=== PATIENT | female | born 1970 | race Caucasian/White ===

== ENCOUNTER 2017-11-27 21:52 | Emergency (ER) | payer OTHER, SELFPAY ==
[2017-11-27 21:53] VITALS: BP 116/72; PULSE 77; RESP 16; TEMP 36.6; O2SAT 99; BMI 24.3
--- NOTE | 2017-11-27 22:19 | CT_ITS ---
STUDY: CT ABDOMEN AND PELVIS WITHOUT CONTRAST REASON FOR EXAM: Female, 47 years old. Back and right lower quadrant pain and loose stools, RADIATION DOSAGE (If Supplied By Facility): CTDIvol = ( 7.54 ) mGy, DLP = ( 391.80 ) mGycm TECHNIQUE: Transaxial images were obtained from the dome of the diaphragm to the symphysis pubis without oral contrast, and without intravenous contrast. Sagittal and coronal images were reconstructed. Individualized dose optimization techniques were used for this CT. COMPARISON: None. FINDINGS: The visualized lung bases are unremarkable. The visualized portions of the heart are within normal limits. There are bilateral breast implants. Normal liver. Normal gallbladder and extrahepatic biliary system. There is a extra spleen or splenule demonstrated nearly equal size. Each measuring approximately 5.5 cm. Normal pancreas. Normal bilateral adrenal glands. Normal right kidney. Normal left kidney. Normal visualized stomach. There are mildly distended loops of small bowel present. There is a decompressed appearance of the colon. Within the transverse colon there is focal absence of stool in possible wall thickening. This is versus peristalsis. The appendix is visualized and appears normal. Normal abdominal aorta. Normal inferior vena cava. Normal retroperitoneum. Normal urinary bladder. Normal visualized uterus. There is a small umbilical hernia containing fat. There are diffuse degenerative changes of the visualized lumbar spine. There is multilevel degenerative change. At the level of L4-L5 there is a broad disc bulge with mild to moderate neural foramina narrowing mild central stenosis. At L5-S1 there is disc space narrowing and endplate sclerosis. There is degenerative change of the SI joints. CT/Abdomen/Pelvis without Cont IMPRESSION: Degenerative change of the thoracolumbar spine. No visualized obstructing renal ureteral bladder calculi. There may be a segment of mild colitis in the transverse colon versus peristalsis. Electronically Signed: Melanie Khanna MD at 23:43 EDT Tel , Service support ,
[2017-11-27 22:33] LABS: Bacteria 0 SEEN /hpf (None Seen); Mucous, Urine 0 SEEN /hpf (<or=2+); Red Blood Cells-Urine 0 SEEN /hpf (0-5); Squamous Epithelial Cells - UA 0 SEEN /hpf (5-10)
[2017-11-27 22:40] LABS: Absolute Lymphocyte Count 1.68 X10^3/ul (0.83-4.51); Absolute Neutrophil Count 2.7 X10^3/uL (2.0-7.7); Basophil# 0.02 X10^3/uL; Basophil% 0.4 % (0-1); Eosinophil# 0.19 X10^3/uL; Eosinophils% 3.9 % (0-5); Hematocrit 41.4 % (37-47); Hemoglobin 13.6 g/dl (12.0-15.0); Lymphocyte # 1.68 X10^3/ul (4.0); Lymphocyte % 34.3 % (19-41); Mean Corp Hgb Conc 32.9 g/gl (32-36); Mean Corpuscular Hgb 30.5 pg (27.0-32.0); Mean Corpuscular Volume 92.8 fL (81-99); Mean Platelet Vol. 8.7 fl (6.2-12.0); Monocyte# 0.28 X10^3/uL; Monocyte% 5.7 % (0-10); Neutrophil # 2.73 X10^3/uL (2.7-7.7); Neutrophil % 55.7 % (47-70); POSITIVE COUNT NO; POSITIVE DIFFERENTIAL NO; POSITIVE MORPHOLOGY NO; Platelet Count 310 K/mm3 (150-450); RBC Distribution Width CV 13.2 % (11.6-14.6); RBC Distribution Width SD 44.9 fl (35.1-43.9); Red Blood Count 4.46 M/mm3 (4.2-5.4); White Blood Count 4.9 K/mm3 (4.4-11.0)
[2017-11-27 23:05] LABS: ALB/GLOB Ratio 1.2 RATIO (0.9-2.4); AST(SGOT) 28 U/L (15-37); Alanine Aminotransfer ALT/SGPT 47 U/L (13-56); Albumin, Serum 3.8 g/dL (3.2-5.0); Alkaline Phosphatase 73 U/L (45-117); Anion Gap 5 (5-15); BUN 8 mg/dL (7-18); BUN/Creat Ratio 8.1 RATIO (10-20); Chloride 110 mmol/L (98-107); Creatinine, Serum 0.99 mg/dL (0.55-1.02); EST Glomerular Filtration Rate 63 mL/min (>60); Est Glom Filt Rate - Afr Amer 77 mL/min (>60); Estimated Creatinine Clearance 69.34 ml/min; Globulin 3.2 g/dL (2.2-4.2); Glucose 97 mg/dL (74-106); Lipase 274 U/L (73-393); Potassium 3.4 mmol/L (3.5-5.1); Sodium Level 142 mmol/L (136-145)
[2017-11-27 23:13] LABS: Color, Urine Yellow (Yellow); Glucose, Dipstick Normal (Normal); Ketone-Dipstick Negative (Negative); Protein-Dipstick Negative (Negative); Urine Bilirubin Dipstick Negative (Negative); Urine Clarity Clear (Clear)
[2017-11-27 23:14] LABS: Leukocyte Esterase-Dipstick 25 /ul (Negative); Nitrite-Dipstick Negative (Negative); Occult Blood-Urine Negative /ul (Negative); Urine Urobilinogen Normal (Normal)
[2017-11-27 23:15] LABS: White Blood Cells 0-5 SEEN /hpf (0-5)
[2017-11-28 00:29] VITALS: BP 117/72; PULSE 68; RESP 15; O2SAT 98
--- NOTE | 2017-11-28 00:41 | ED.VISSUMM ---
- ER Visit Summary Date of Service: 11/28/17 Chief Complaint: Abdominal pain History of Present Illness: The patient is a 47 F presenting for evaluation secondary to abdominal pain. Patient reports that at approximately 130 today she had a sudden onset of diarrhea. She reports that she had 4 episodes of nonbloody non-mucousy diarrhea. She states it has been associated with nausea and a gradual onset of right lower quadrant abdominal pain. Patient states that the abdominal pain seems to be somewhat migratory now moving to the left side of her abdomen and radiating through to her back. Has no leaving factors is little bit worse with palpation and has been associated with subjective chills. Patient denies any recent exposures to antibiotic or travel. Review of systems otherwise negative. Physical Examination: Vital signs are within normal limits, patient is afebrile. General: Patient is well-nourished well-developed and in no acute distress. Head: Normocephalic, atraumatic Eyes: Pupils equal round and reactive bilaterally, extra occular motion intact bialterally ENT: Moist mucous membranes Neck: Supple, no lymphadenopathy, no JVD, no meningismus CVS: Heart regular rate and rhythm, no murmurs, rubs or gallops, radial pulses 2+ bilaterally Resp: Respirations nondistressed, lung sounds clear bilaterally Abdomen: Soft, tender in the epigastrium and left lower quadrant without any guarding or rebound, nondistended, no palpable masses, normal bowel sounds Back: Nontender Extremities: Nontender, atraumatic, active full range of motion, no peripheral edema Skin: warm, no rashes, no petechia Neuro: Alert and oriented x 4, CN 2-12 intact, no lateralizing neurological defecits Psyc: Normal affect Test Results: CT abdomen and pelvis shows colitis of the transverse colon, CBC chemistry liver lipase and urinalysis unremarkable Emergency Department Course and Treatment: Patient presented for evaluation secondary to abdominal pain. Workup as noted above showed evidence of colitis. Repeat evaluation showed patient to continue to have a nonsurgical abdomen. Given the fact that she does have some localized colitis I will treat this with antibiotics. She has does not have any blood, has never really had any prior similar episodes, I am not really concerned for inflammatory bowel disease at this point. Patient was recommended follow-up with primary care. Disposition: Discharge Impression: 1. Colitis This note was generated with [employer] dictation software. It may contain incorrect words, spelling, and punctuation that were not noted in review of the chart prior to signing ED Disposition - Plan for ED Patient: Disposition: Home or Assisted Living Chief Complaint: Abd Pain Diagnosis: Colitis Instructions: ED Gastroenteritis Bacterial Prescriptions: Hydrocodone Bitart/Apap 5-325 [[place] 5MG-325MG] 1 tab PO Q4H PRN PRN 2 Days #10 tab PRN Reason: Pain Amox/Clavulanate Tablet [Augmentin Tablet] 875 mg PO Q12H #20 tab Referrals: Jayden Ward MD [Primary Care Provider] - 3-5 Days
--- NOTE | 2017-11-28 00:45 | ED.DCSUM_ITS ---
- ER Visit Summary Date of Service: 11/28/17 Chief Complaint: Abdominal pain History of Present Illness: The patient is a 47 F presenting for evaluation secondary to abdominal pain. Patient reports that at approximately 130 today she had a sudden onset of diarrhea. She reports that she had 4 episodes of nonbloody non-mucousy diarrhea. She states it has been associated with nausea and a gradual onset of right lower quadrant abdominal pain. Patient states that the abdominal pain seems to be somewhat migratory now moving to the left side of her abdomen and radiating through to her back. Has no leaving factors is little bit worse with palpation and has been associated with subjective chills. Patient denies any recent exposures to antibiotic or travel. Review of systems otherwise negative. Physical Examination: Vital signs are within normal limits, patient is afebrile. General: Patient is well-nourished well-developed and in no acute distress. Head: Normocephalic, atraumatic Eyes: Pupils equal round and reactive bilaterally, extra occular motion intact bialterally ENT: Moist mucous membranes Neck: Supple, no lymphadenopathy, no JVD, no meningismus CVS: Heart regular rate and rhythm, no murmurs, rubs or gallops, radial pulses 2 + bilaterally Resp: Respirations nondistressed, lung sounds clear bilaterally Abdomen: Soft, tender in the epigastrium and left lower quadrant without any guarding or rebound, nondistended, no palpable masses, normal bowel sounds Back: Nontender Extremities: Nontender, atraumatic, active full range of motion, no peripheral edema Skin: warm, no rashes, no petechia Neuro: Alert and oriented x 4, CN 2-12 intact, no lateralizing neurological defecits Psyc: Normal affect Test Results: CT abdomen and pelvis shows colitis of the transverse colon, CBC chemistry liver lipase and urinalysis unremarkable Emergency Department Course and Treatment: Patient presented for evaluation secondary to abdominal pain. Workup as noted above showed evidence of colitis. Repeat evaluation showed patient to continue to have a nonsurgical abdomen. Given the fact that she does have some localized colitis I will treat this with antibiotics. She has does not have any blood, has never really had any prior similar episodes, I am not really concerned for inflammatory bowel disease at this point. Patient was recommended follow-up with primary care. Disposition: Discharge Impression: 1. Colitis This note was generated with [employer] dictation software. It may contain incorrect words, spelling, and punctuation that were not noted in review of the chart prior to signing ED Disposition - Plan for ED Patient: Disposition: Home or Assisted Living Chief Complaint: Abd Pain Diagnosis: Colitis Instructions: ED Gastroenteritis Bacterial Prescriptions: Hydrocodone Bitart/Apap 5-325 [[place] 5MG-325MG] 1 tab PO Q4H PRN PRN 2 Days #10 tab PRN Reason: Pain Amox/Clavulanate Tablet [Augmentin Tablet] 875 mg PO Q12H #20 tab Referrals: Jayden Ward MD [Primary Care Provider] - 3-5 Days
[2017-11-28] MEDS: HYDROcodone Bitartrate/Apap 5/325 Tablet PO (00:57)
[2017-11-28] MEDS: Amox/Clavulanate 875 MG Tablet PO (00:57)
[2017-11-28 00:58] VITALS: RESP 18
== END 2017-11-28 00:58 | disposition home or self-care (01) ==
PROVIDERS: Emergency Provider Emergency Medicine; Family Provider Family Medicine; PCP Family Medicine
DX: K52.9 Noninfective gastroenteritis and colitis, unspecified (principal); E78.00 Pure hypercholesterolemia, unspecified; F31.9 Bipolar disorder, unspecified; E03.9 Hypothyroidism, unspecified; G43.909 Migraine, unspecified, not intractable, without status migrainosus; Z79.899 Other long term (current) drug therapy
CPT/HCPCS: 74176; 80053; 80178; 81001; 83690; 85025; 99283; J7030; A4216

== ENCOUNTER → 2018-06-26 08:43 | Outpatient (CLI) | payer OTHER, SELFPAY ==
[2018-06-26 08:31] VITALS: BMI 24.1
--- NOTE | 2018-06-26 08:47 | RAD_ITS ---
STUDY: X-RAY - LUMBAR SPINE REASON FOR EXAM: Female, 48 years old. Fall TECHNIQUE: view(s) of the lumbar spine were obtained. COMPARISON: None FINDINGS: Normal lumbar lordosis. There is no substantial scoliosis. There is a normal alignment of the vertebrae. Normal vertebral bodies and endplates. Disc height loss is noted at L5-S1 with mild degenerative endplate marginal osteophytes otherwise disc height is maintained. The soft tissue structures are unremarkable. RAD/Thoracolumbar 2 Views IMPRESSION: No acute abnormality. Degenerative disc height loss L5-S1 Electronically Signed: Anyi Mitchell MD at 12:32 EST , Service support ,
--- NOTE | 2018-06-26 08:47 | RAD_ITS ---
STUDY: X-RAY - LUMBAR SPINE REASON FOR EXAM: Female, 48 years old. Fall TECHNIQUE: view(s) of the lumbar spine were obtained. COMPARISON: None FINDINGS: Normal lumbar lordosis. There is no substantial scoliosis. There is a normal alignment of the vertebrae. Normal vertebral bodies and endplates. Disc height loss is noted at L5-S1 with mild degenerative endplate marginal osteophytes otherwise disc height is maintained. The soft tissue structures are unremarkable. RAD/Cerv Spine 2 or 3 Views IMPRESSION: No acute abnormality. Degenerative disc height loss L5-S1 Electronically Signed: Anyi Mitchell MD at 12:32 EST , Service support ,
--- NOTE | 2018-06-26 08:47 | RAD_ITS ---
STUDY: X-RAY - LUMBAR SPINE REASON FOR EXAM: Female, 48 years old. Fall TECHNIQUE: view(s) of the lumbar spine were obtained. COMPARISON: None FINDINGS: Normal lumbar lordosis. There is no substantial scoliosis. There is a normal alignment of the vertebrae. Normal vertebral bodies and endplates. Disc height loss is noted at L5-S1 with mild degenerative endplate marginal osteophytes otherwise disc height is maintained. The soft tissue structures are unremarkable. RAD/Shoulder min 2 Views IMPRESSION: No acute abnormality. Degenerative disc height loss L5-S1 Electronically Signed: Anyi Mitchell MD at 12:32 EST , Service support ,
--- NOTE | 2018-06-26 12:12 | RAD_ITS ---
STUDY: X-RAY - LUMBAR SPINE REASON FOR EXAM: Female, 48 years old. Fall TECHNIQUE: view(s) of the lumbar spine were obtained. COMPARISON: None FINDINGS: Normal lumbar lordosis. There is no substantial scoliosis. There is a normal alignment of the vertebrae. Normal vertebral bodies and endplates. Disc height loss is noted at L5-S1 with mild degenerative endplate marginal osteophytes otherwise disc height is maintained. The soft tissue structures are unremarkable. RAD/Lumbar Spine 2 or 3 Views IMPRESSION: No acute abnormality. Degenerative disc height loss L5-S1 Electronically Signed: Ayni Mitchell MD at 12:32 EST , Service support ,
--- NOTE | 2018-06-26 12:12 | RAD_ITS ---
STUDY: X-RAY - THORACIC SPINE REASON FOR EXAM: Female, 48 years old. Fall TECHNIQUE: 2 view(s) of the thoracic spine were obtained. COMPARISON: None. FINDINGS: Normal kyphosis of the thoracic spine. There is no substantial scoliosis. There is mild superior endplate compression and irregularity of T4 but without evidence of cortical buckling in the appearance suggests chronic change. No evidence of acute fracture. Mild multilevel marginal osteophytes are present. Normal disc space heights. The soft tissue structures are unremarkable. RAD/Thoracic Spine 2 Views IMPRESSION: No acute fracture. There does appear mild superior endplate compression of T4 with irregularity but this appearance is more likely chronic than acute. Mild degenerative endplate changes. Electronically Signed: Anyi Mitchell MD at 12:26 EST , Service support ,
--- OUTSIDE RECORDS SUMMARY | 2018-08-31 | XMS RPT_ITS ---
:1970 Author Organization OHIP Support Name Relationship Address Phone MARIXA NELSON Unavailable [address] + [place] [address] BOLES Unavailable [address] + [place] [address] ADDIS NEUMANN Unavailable [address] + [place] [address] LESLIE MARIXA Unavailable [address] + [place] [address] BOLES Unavailable [address] + [place] [address] ADDIS NEUMANN Unavailable [address] + [place] [address] MARIXA NELSON Unavailable [address] + [place] [address] BOLES Unavailable [address] + [place] [address] ADDIS NEUMANN Unavailable [address] + [place] [address] MARIXA NELSON Unavailable [address] + [place] [address] BOLES Unavailable [address] + [place] [address] ADDIS NEUMANN Unavailable [address] + [place] [address] MARIXA NELSON Unavailable [address] + [place] [address] BOLES Unavailable [address] + [place] [address] ADDIS NEUMANN Unavailable [address] + [place] [address] MARIXA NELSON Unavailable [address] + [place] [address] BOLES Unavailable [address] + [place] [address] ADDIS NEUMANN Unavailable [address] + [place] [address] MARIXA NELSON Un[address] + [place] [address] BOLES Unavailable [address] + [place] [address] ADDIS NEUMANN Unavailable [address] + [place] [address] BOLES Unavailable [address] + [place] [address] ADDIS NEUMANN Unavailable [address] + [place] [address] Care Team Providers Name Role Phone Prashanth Shook Attending Unavailable Ed, Jayden Referring Unavailable Prashanth Shook Attending Unavailable Prashanth Shook Referring Unavailable Ed, Jayden Primary Care Unavailable Prashanth Shook Attending Unavailable Ed, Jayden Referring Unavailable Ed, Jayden Primary Care Unavailable Ed, Jayden Primary Care Unavailable Willi Taylor Attending Unavailable Jose Bhagat Attending Unavailable Ed, Jayden Referring Unavailable Ed, Jayden Primary Care Unavailable Prashanth Shook Attending Unavailable Ed, Jayden Referring Unavailable Jose Bhagat Attending Unavailable Ed, Jayden Referring Unavailable Ed, Jayden Primary Care Unavailable Prashanth Shook Attending Unavailable Ed, Jayden Referring Unavailable De, Jayden Primary Care Unavailable PROBLEMS PROBLEMS DATE TYPE CONDITION / CODE ATTENDING STATUS SOURCE 06/26/2018 Unknown M54.2 - Bouchra Prashanth Active [facility]ervical[facility] / Community M54.2(ICD-10) Hospital Repository 06/26/2018 Unknown M54.9 - Bouchra Prashanth Active [facility] Dorsalgia, Community unspecified / Hospital M54.9(ICD-10) Repository 06/26/2018 Unknown M25.511 - Pain in Bouchra Prashanth Active [facility] right shoulder / Community M25.511(ICD-10) Hospital Repository 02/22/2018 Unknown J06.9 - Acute Jose Bhagat Active [facility] upper respiratory Community infection, Hospital unspecified / Repository J06.9(ICD-10) 01/25/2018 Unknown R10.31 - Right Willi Taylor Active [facility] lower quadrant [facility] pain / Hospital R10.31(ICD-10) Repository PROCEDURES PROCEDURES No Procedure Records FoundRESULTS RESULTS URGENT CARE VISIT Observed: 07/03/2018 Status: F Source: [place] REPORT 4:56 PM [facility] REPOSITORY [facility] [address] [place] [address] [address] [place] [address] OFFICE VISIT Date of Service: 07/03/18 MR#: [id number] Acct: [id number] Name: NIGHAT NEUMANN Rep #: [id number] : 1970 Provider: Prashanth SANCHES Age/Sex: 48/F Location: [facility] Status: Signed Intake Vital Signs07/03/18 Blood Pressure 114/68 07/03/18 Blood Pressure Location Lt brachial 07/03/18 Blood Pressure Position Sitting Intake Visit Reasons: RT SIDED PAIN/FELL ON ICE/ WORK COMP Chief Complaint: s/p fall recheck Allergies No Known Allergies Allergy (Verified 06/26/18 08:31) Erythromycin Allergy (Mild, Uncoded 06/26/18 08:31) Nausea/Vom/Diarrhea Medications bupropion HCl XL 150 mg 24 hr tablet, extended release 2 tab PO DAILY 30 Days #30 10/17/17 [History Confirmed 02/25/18] cetirizine 10 mg capsule 10 mg PO QDAY 10/17/17 [History Confirmed 02/25/18] levothyroxine 75 mcg tablet 1 tab PO DAILY 90 Days #90 10/17/17 [History Confirmed 02/25/18] lithium carbonate ER 300 mg tablet,extended release 1 tab PO DAILY 30 Days #90 10/17/17 [History Confirmed 02/25/18] rosuvastatin 5 mg tablet 1 tab PO DAILY 30 Days #30 10/17/17 [History Confirmed 02/25/18] verapamil ER (SR) 180 mg tablet,extended release PO 30 Days #30 10/17/17 [History Confirmed 02/25/18] Mountainaire Carbonate [Lithobid] 2 tab PO QHS 11/27/17 [History Confirmed 02/25/18] Valacyclovir HCl [Valtrex] 1,000 mg PO TID 11/27/17 [History Confirmed 02/25/18] Verapamil [Calan Sr] 1 tab PO DAILY 11/27/17 [History Confirmed 02/25/18] PFSH Medical History Migraines (Acute) SOB (shortness of breath) (Acute) Seasonal allergies (Acute) Seasonal depression (Acute) Thyroid disease (Acute) Family History Other CVA (cerebral vascular accident) Depression Environmental allergies Heart disease Hypertension Social History Smoking Status: Never smoker alcohol intake: current alcohol intake frequency: a few times a month HPI HPI Chief Complaint: s/p fall recheck Details: NIGHAT NEUMANN, is a 48 F who presents to the office today for follow-up status post work-related incident occurring 1 week ago. Patient notes since her last evaluation here her symptoms have improved remarkably noting really trace aching posterior neck discomfort without caudal or radicular complaints. She has been working without restrictions without difficulty. She notes no other associated symptoms and no other alleviating or aggravating factors. ROS Const Constitutional: No other (ROS negative x10 other than as noted above) Exam Const General: cooperative, healthy appearing, no acute distress Nutritional Appearance: average body habitus Orientation: alert, awake, oriented x3 Skin General: no rashes or lesions noted (Right hand abrasion well- healed without sequelae) Neuro General: alert, awake, oriented x3, gait normal Cognition: normal cognition Speech: speech normal Gait: normal gait Motor: muscle tone normal throughout Sensory Exam: no sensory deficits noted Extrem General: normal to inspection (See other below) Other: Cervical: Unguarded full active range of motion with no C-spine or paraspinal tenderness to palpation in 5/5 myotomes dermatomes bilateral upper extremities. Thoracic lumbar: No tenderness palpation of the thoracic lumbar spine or paraspinal musculature with unguarded full active range of motion of the waist and 5/5 myotomes dermatomes bilateral lower extremities. Right shoulder: Unguarded full active range of motion to the same. Bilateral wrists: unguarded full active range of motion to the same with 5/5 assistant account manager strength appreciated bilaterally. Right hand: Abrasion well-healed without sequelae. Psych Appearance: grossly normal Mental Status: mental status grossly normal Mood: congruent mood Affect: normal affect Speech and Movement: speech and movement normal Attitude: cooperative Thought Process: normal Thought Content: normal Judgment: judgment good Assessment AND Plan Problems 1. Cervical strain S16.1XXA 2. Strain of thoracic region S29.019A 3. Lumbar strain S39.012A 4. Right shoulder strain S46.911A 5. Strain of wrist, bilateral S66.911A; S66.912A 6. Abrasion of right hand S60.511A Plan Released to return to work without restrictions at this time; MMI 07/03/18. Patient states acknowledging understanding all the above. This note was generated with [employer] software. It may contain incorrect words, spelling, and punctuation that were not noted in checking the note before signing. Coding Level of Care Code Off vis,est,level 3 Diagnoses Cervical strain S16.1XXA Strain of thoracic region S29.019A Lumbar strain S39.012A Right shoulder strain S46.911A Strain of wrist, bilateral S66.911A; S66.912A Abrasion of right hand S60.511A 07/03/18 1656 <Electronically signed by Prashanth SANCHES> Date Prashanth SANCHES Cosigner Signature: Date (if applicable) CC: URGENT CARE VISIT Observed: 06/26/2018 Status: F Source: [place] REPORT 1:55 PM [facility] [place] [place] REPOSITORY 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 Accompanied by: self Is patient in pain?: Yes Allergies No Known Allergies Allergy (Verified 06/26/18 08:31) Erythromycin Allergy (Mild, Uncoded 06/26/18 08:31) Nausea/Vom/Diarrhea Medications bupropion HCl XL 150 mg 24 hr tablet, extended release 2 tab PO DAILY 30 Days #30 10/17/17 [History Confirmed 02/25/18] cetirizine 10 mg capsule 10 mg PO QDAY 10/17/17 [History Confirmed 02/25/18] levothyroxine 75 mcg tablet 1 tab PO DAILY 90 Days #90 10/17/17 [History Confirmed 02/25/18] lithium carbonate ER 300 mg tablet,extended release 1 tab PO DAILY 30 Days #90 10/17/17 [History Confirmed 02/25/18] rosuvastatin 5 mg tablet 1 tab PO DAILY 30 Days #30 10/17/17 [History Confirmed 02/25/18] verapamil ER (SR) 180 mg tablet,extended release PO 30 Days #30 10/17/17 [History Confirmed 02/25/18] Mountainaire Carbonate [Lithobid] 2 tab PO QHS 11/27/17 [History Confirmed 02/25/18] Valacyclovir HCl [Valtrex] 1,000 mg PO TID 11/27/17 [History Confirmed 02/25/18] Verapamil [Calan Sr] 1 tab PO DAILY 11/27/17 [History Confirmed 02/25/18] PFSH Medical History Migraines (Acute) SOB (shortness of breath) (Acute) Seasonal allergies (Acute) Seasonal depression (Acute) Thyroid disease (Acute) Family History Other CVA (cerebral vascular accident) Depression Environmental allergies Heart disease Hypertension Social History Smoking Status: Never smoker alcohol intake: current alcohol intake frequency: a few times a month HPI HPI Chief Complaint: Fell Details: NIGHAT NEUMANN, is a 48 F who presents to the office today for initial evaluation status post fall while in the parking lot at work earlier today. Patient noted falling forward landing on outstretched hands twisting her back and causing neck pain, right shoulder pain, mid low right great than left back pain, and bilateral hand pain. Patient also noted also suffering abrasion to the left palmar hand in the process; last tetanus immunization less than 10 years ago she so states. She is right-hand dominant. Past medical history significant for previous history of right humerus fracture x3 as a teenager. She notes no caudal or radicular complaints upon questioning. She notes no loss of sensation strength or function of bilateral upper extremity or bilateral lower extremity. She notes no other associated symptoms no other alleviating or aggravating factors. ROS Const Constitutional: No other (ROS negative x10 other than as noted above) Exam Const General: cooperative, healthy appearing, no acute distress, uncomfortable Nutritional Appearance: average body habitus Orientation: alert, awake, oriented x3 [facility] Head: normal to inspection Ears: hearing grossly normal bilaterally, external ears normal, TM's normal bilaterally, EAC's normal Nose: external nose normal, nares normal, septum normal, no nasal discharge Face and sinus: normal facial exam, face symmetric Mouth: tongue normal, lip normal, oral mucosae normal Teeth and gingiva: dentition normal, gingiva normal Throat: uvula midline, tonsils normal, posterior oropharynx normal Eyes General: appearance normal, both eyes and all related structures Neck Neck: normal visual inspection, full ROM Chest Chest palpation AND inspection: normal inspection of the chest Resp Effort AND Inspection: normal respiratory effort, able to speak in complete sentences, symmetric chest movement Auscultation: Bilateral: Clear to Auscultation Cardio Palpation: normal PMI Rate: regular rate Rhythm: regular rhythm Heart Sounds: S1 normal, S2 normal, no gallops, no murmurs, no rubs Pulses: radial pulses present GI Inspection: normal to inspection Palpation: soft Musc Musculoskeletal: Yes joint tenderness (Right shoulder and bilateral wrists only minimally w/ FAROM to all); no joint redness, joint warmth or decreased ROM Cervical Spine: cervical ROM normal; no normal cervical lordosis (Loss of lordosis by x-ray; c- spine films negative otherwise per my review) Thoracic/Lumbar Spine: thoracic and lumbar spine normal to inspection (Except loss of L5-S1 spacing her radiographs per my review), thoraco-lumbar ROM normal, no thoraco-lumbar spasm, no lumbar spinal tenderness, no thoracic spinal tenderness, paraspinal tenderness on the right greater than left (Lower thoracic/upper mid lumbar), straight leg raise negative bilaterally Skin General: no rashes or lesions noted Neuro General: alert, awake, oriented x3, gait normal Cognition: normal cognition Speech: speech normal Gait: normal gait Motor: muscle tone normal throughout Sensory Exam: no sensory deficits noted Extrem General: normal to inspection, full ROM, normal capillary refill, no joint enlargement, normal exam except as noted (R shoulder xray = NAP per my review, pending radiology interpretation) Psych Appearance: grossly normal Mental Status: mental status grossly normal Mood: congruent mood Affect: normal affect Speech and Movement: speech and movement normal Attitude: cooperative Thought Process: normal Thought Content: normal Judgment: judgment good Assessment AND Plan Problems 1. Cervical strain S16.1XXA 2. Strain of thoracic region S29.019A 3. Lumbar strain S39.012A 4. Right shoulder strain S46.911A 5. Strain of wrist, bilateral S66.911A; S66.912A 6. Abrasion of right hand S60.511A Plan C-spine, T-spine, LS-spine, right shoulder radiographs reveal no acute pathology per my review, pending radiologist interpretation at the time of this dictation; patient stated acknowledging understanding this review. Return to work without restrictions at this time. Rest, ice, Advil/Tylenol as needed for symptomatic relief. Twice daily wound care as instructed today. Follow-up with the now clinic in 1 week for reevaluation, sooner should symptoms worsen or any other concerns develop. Patient states acknowledging understanding all the above. This note was generated with [employer] dictation software. It may contain incorrect words, spelling, and punctuation that were not noted in checking the note before signing. Orders Orders: Coding Level of Care Code Off vis,est,level 4 Diagnoses Cervical strain S16.1XXA Strain of thoracic region S29.019A Lumbar strain S39.012A Right shoulder strain S46.911A Strain of wrist, bilateral S66.911A; S66.912A Abrasion of right hand S60.511A 06/26/18 1355 <Electronically signed by Prashanth SANCHES> Date Prashanth SANCHES Cosigner Signature: Date (if applicable) CC: THORACIC SPINE 2 Observed: 06/26/2018 Status: F Source: [place] 12:12 PM [facility] [place] [place] REPOSITORY [facility] Imaging Services [address] [place] [address] Thoracic Spine 2 Views MR#: [id number] Acct: [id number] Name: NIGHAT NEUMANN Rep #: [id number] : 1970 F 48 From: Anyi Mitchell MD PCP: Jayden Ward MD Status: REG CLI Study: Thoracic Spine 2 Views Date of Exam: 06/26/18 Exam# [id number] Ordering Dr: Prashanth Shook STUDY: X-RAY - THORACIC SPINE REASON FOR EXAM: Female, 48 years old. Fall TECHNIQUE: 2 view(s) of the thoracic spine were obtained. COMPARISON: None. FINDINGS: Normal kyphosis of the thoracic spine. There is no substantial scoliosis. There is mild superior endplate compression and irregularity of T4 but without evidence of cortical buckling in the appearance suggests chronic change. No evidence of acute fracture. Mild multilevel marginal osteophytes are present. Normal disc space heights. The soft tissue structures are unremarkable. RAD/Thoracic Spine 2 Views IMPRESSION: No acute fracture. There does appear mild superior endplate compression of T4 with irregularity but this appearance is more likely chronic than acute. Mild degenerative endplate changes. Electronically Signed: Anyi Mitchell MD at 12:26 EST , Service support , CC: Jayden Ward MD; Prashanth SANCHES 2Nd Pressman: Signed LUMBAR SPINE 2 OR 3 Observed: 06/26/2018 Status: F Source: [place] VIEWS 12:12 PM [facility] [place] [place] REPOSITORY [facility] Imaging Services [address] [place] [address] Lumbar Spine 2 or 3 Views MR#: [id number] Acct: [id number] Name: NIGHAT NEUMANN Rep #: [id number] : 1970 F 48 From: Anyi Mitchell MD PCP: Jayden Ward MD Status: REG CLI Study: Lumbar Spine 2 or 3 Views Date of Exam: 06/26/18 Exam# [id number] Ordering Dr: Prashanth Shook STUDY: X-RAY - LUMBAR SPINE REASON FOR EXAM: Female, 48 years old. Fall TECHNIQUE: view(s) of the lumbar spine were obtained. COMPARISON: None FINDINGS: Normal lumbar lordosis. There is no substantial scoliosis. There is a normal alignment of the vertebrae. Normal vertebral bodies and endplates. Disc height loss is noted at L5-S1 with mild degenerative endplate marginal osteophytes otherwise disc height is maintained. The soft tissue structures are unremarkable. RAD/Lumbar Spine 2 or 3 Views IMPRESSION: No acute abnormality. Degenerative disc height loss L5-S1 Electronically Signed: Anyi Mitchell MD at 12:32 EST , Service support , CC: Jayden Ward MD; Prashanth SANCHES 2Nd Pressman: Signed SHOULDER MIN 2 VIEWS Observed: 06/26/2018 Status: F Source: [place] 8:48 AM [facility] Imaging Services [address] [place] [address] Shoulder min 2 Views MR#: [id number] Acct: [id number] Name: NIGHAT NEUMANN Rep #: [id number] : 1970 F 48 From: Anyi Mitchell MD PCP: Jayden Ward MD Status: REG CLI Study: Shoulder min 2 Views Date of Exam: 06/26/18 Exam# [id number] Ordering Dr: Prashanth Shook STUDY: X-RAY - LUMBAR SPINE REASON FOR EXAM: Female, 48 years old. Fall TECHNIQUE: view(s) of the lumbar spine were obtained. COMPARISON: None FINDINGS: Normal lumbar lordosis. There is no substantial scoliosis. There is a normal alignment of the vertebrae. Normal vertebral bodies and endplates. Disc height loss is noted at L5-S1 with mild degenerative endplate marginal osteophytes otherwise disc height is maintained. The soft tissue structures are unremarkable. RAD/Shoulder min 2 Views IMPRESSION: No acute abnormality. Degenerative disc height loss L5-S1 Electronically Signed: Anyi Mitchell MD at 12:32 EST , Service support , CC: Jayden Ward MD; Prashanth SANCHES 2Nd Pressman: Signed THORACOLUMBAR 2 VIEWS Observed: 06/26/2018 Status: F Source: [place] 8:48 AM [facility] [place] [place] REPOSITORY [facility] Imaging Services [address] [place] [address] Thoracolumbar 2 Views MR#: [id number] Acct: [id number] Name: NIGHAT NEUMANN Marcelina Rep #: [id number] : 1970 F 48 From: Anyi Mitchell MD PCP: Jayden Ward MD Status: REG CLI Study: Thoracolumbar 2 Views Date of Exam: 06/26/18 Exam# [id number] Ordering Dr: Prashanth Shook STUDY: X-RAY - LUMBAR SPINE REASON FOR EXAM: Female, 48 years old. Fall TECHNIQUE: view(s) of the lumbar spine were obtained. COMPARISON: None FINDINGS: Normal lumbar lordosis. There is no substantial scoliosis. There is a normal alignment of the vertebrae. Normal vertebral bodies and endplates. Disc height loss is noted at L5-S1 with mild degenerative endplate marginal osteophytes otherwise disc height is maintained. The soft tissue structures are unremarkable. RAD/Thoracolumbar 2 Views IMPRESSION: No acute abnormality. Degenerative disc height loss L5-S1 Electronically Signed: Anyi Mitchell MD at 12:32 EST , Service support , CC: Jayden Ward MD; Prashanth SANCHES 2Nd Pressman: Signed CERV SPINE 2 OR 3 Observed: 06/26/2018 Status: F Source: [place] VIEWS 8:48 AM [facility] [place] [place] REPOSITORY [facility] Imaging Services [address] [place] [address] Cerv Spine 2 or 3 Views MR#: [id number] Acct: [id number] Name: NIGHAT NEUMANN Rep #: [id number] : 1970 F 48 From: Anyi Mitchell MD PCP: Jayden Ward MD Status: REG CLI Study: Cerv Spine 2 or 3 Views Date of Exam: 06/26/18 Exam# [id number] Ordering Dr: Prashanth Shook STUDY: X-RAY - LUMBAR SPINE REASON FOR EXAM: Female, 48 years old. Fall TECHNIQUE: view(s) of the lumbar spine were obtained. COMPARISON: None FINDINGS: Normal lumbar lordosis. There is no substantial scoliosis. There is a normal alignment of the vertebrae. Normal vertebral bodies and endplates. Disc height loss is noted at L5-S1 with mild degenerative endplate marginal osteophytes otherwise disc height is maintained. The soft tissue structures are unremarkable. RAD/Cerv Spine 2 or 3 Views IMPRESSION: No acute abnormality. Degenerative disc height loss L5-S1 Electronically Signed: Anyi Mitchell MD at 12:32 EST , Service support , CC: Jayden Ward MD; Prashanth SANCHES 2Nd Pressman: Signed URGENT CARE VISIT Observed: 02/25/2018 Status: F Source: [place] REPORT 8:44 AM [facility] [place] [place] REPOSITORY [facility] [address] [place] [address] [address] [place] [address] OFFICE VISIT Date of Service: 02/25/18 MR#: [id number] Acct: [id number] Name: NIGHAT NEUMANN Rep #: [id number] : 1970 Provider: Prashanth SANCHES Age/Sex: 47/F Location: [facility] Status: Signed Intake Vital Signs02/25/18 Height 5 ft 8 in Intake Visit Reasons: COUGH, DIZZY, NAUSEA Chief Complaint: Sinus pressure, postnasal drip Allergies No Known Allergies Allergy (Verified 02/25/18 06:54) Erythromycin Allergy (Mild, Uncoded 02/25/18 06:56) Nausea/Vom/Diarrhea Medications bupropion HCl XL 150 mg 24 hr tablet, extended release 2 tab PO DAILY 30 Days #30 10/17/17 [History Confirmed 02/25/18] cetirizine 10 mg capsule 10 mg PO QDAY 10/17/17 [History Confirmed 02/25/18] levothyroxine 75 mcg tablet 1 tab PO DAILY 90 Days #90 10/17/17 [History Confirmed 02/25/18] lithium carbonate ER 300 mg tablet,extended release 1 tab PO DAILY 30 Days #90 10/17/17 [History Confirmed 02/25/18] rosuvastatin 5 mg tablet 1 tab PO DAILY 30 Days #30 10/17/17 [History Confirmed 02/25/18] verapamil ER (SR) 180 mg tablet,extended release PO 30 Days #30 10/17/17 [History Confirmed 02/25/18] Mountainaire Carbonate [Lithobid] 2 tab PO QHS 11/27/17 [History Confirmed 02/25/18] Valacyclovir HCl [Valtrex] 1,000 mg PO TID 11/27/17 [History Confirmed 02/25/18] Verapamil [Calan Sr] 1 tab PO DAILY 11/27/17 [History Confirmed 02/25/18] azithromycin 250 mg tablet See Label Instructions PO .COMPLEX #6 tab 02/22/18 [Rx Confirmed 02/25/18] amoxicillin 875 mg-potassium clavulanate 125 mg tablet 1 tab PO BID #20 tab 02/25/18 [Rx Confirmed 02/25/18] [facility] Medical History Migraines (Acute) SOB (shortness of breath) (Acute) Seasonal allergies (Acute) Seasonal depression (Acute) Thyroid disease (Acute) Family History Other CVA (cerebral vascular accident) Depression Environmental allergies Heart disease Hypertension Social History Smoking Status: Never smoker alcohol intake: current alcohol intake frequency: a few times a month HPI HPI Chief Complaint: Sinus pressure, postnasal drip Details: NIGHAT NEUMANN, is a 47 F who presents to the office today for c/o dizziness, nausea, congestion for about a week. Patient notes since her last evaluation here 3 days ago she has been compliant with the azithromycin and notes her symptoms only worsen in particular the nausea and dizziness. She states that she had previously told her office that she had no drug allergies, but then mentioned as an aside that she has trouble with erythromycin as this is because her nausea vomiting and diarrhea in the past. Additionally she has also stated that she has been taking Mucinex D to assist with her symptoms but does not feel this is helping. She notes she is coughing up purulent yellow green sputum. She notes occasional chills though no complaints of fever, sweats, rash, chest pain/shortness of breath. She has no other associated symptoms no other alleviating or aggravating factors. ROS Const Constitutional: No other (ROS negative 10 other than as noted above) Exam Const General: cooperative, healthy appearing, no acute distress Nutritional Appearance: average body habitus Orientation: alert, awake, oriented x3 HENMT Head: normal to inspection Ears: hearing grossly normal bilaterally, external ears normal, TM's normal bilaterally, EAC's normal Nose: external nose normal, nares normal, septum normal, no nasal discharge Face and sinus: normal facial exam, face symmetric, sinus tenderness frontal (Increased tenderness with leaning forward) Mouth: oral mucosae normal, lip normal, tongue normal Teeth and gingiva: gingiva normal, dentition normal Throat: uvula midline, tonsils normal, posterior oropharynx normal, postnasal drainage (Purulent green) Eyes General: appearance normal, both eyes and all related structures Neck Neck: normal visual inspection, full ROM, no lymphadenopathy, no meningeal signs, supple Neck mass: No Thyroid: thyroid normal Lymphatic: no lymphadenopathy noted Chest Chest palpation AND inspection: normal inspection of the chest Resp Effort AND Inspection: normal respiratory effort, able to speak in complete sentences, symmetric chest movement, no cough Auscultation: Bilateral: Clear to Auscultation Cardio Palpation: normal PMI Rate: regular rate Rhythm: regular rhythm Heart Sounds: S1 normal, S2 normal, no gallops, no murmurs, no rubs Pulses: radial pulses present GI Inspection: normal to inspection Palpation: soft, no hepatosplenomegaly Skin General: no rashes or lesions noted Neuro General: alert, awake, oriented x3, gait normal, No other (No nuchal rigidity) Cognition: normal cognition Speech: speech normal Gait: normal gait Motor: muscle tone normal throughout Sensory Exam: no sensory deficits noted Psych Appearance: grossly normal Mental Status: mental status grossly normal Mood: congruent mood Affect: normal affect Speech and Movement: speech and movement normal Attitude: cooperative Thought Process: normal Thought Content: normal Judgment: judgment good Assessment AND Plan Problems 1. URI, acute J06.9 2. Sinusitis J32.9 Plan Work excuse for today and tomorrow given to patient. Start Augmentin as prescribed today; stop azithromycin at this time. Clear fluids, rest, Advil/Tylenol/Zyrtec as needed for symptomatic relief; stop all decongestant use. Avoid tobacco smoke exposure. Follow-up with PCP in 3-5 days should symptoms not improved, sooner should symptoms worsen or any other concerns develop. Patient states acknowledging understanding all the above. This note was generated with Theatrics dictation software. It may contain incorrect words, spelling, and punctuation that were not noted in checking the note before signing. Medications New: Coding Level of Care Code Off vis,est,level 3 Diagnoses URI, acute J06.9 Sinusitis J32.9 02/25/18 0844 <Electronically signed by Prashanth SANCHES> Date Prashanth M Wyles PA Cosigner Signature: Date (if applicable) CC: URGENT CARE VISIT Observed: 02/22/2018 Status: F Source: [place] RE[place] 12:54 PM [facility] [place] [place] REPOSITORY [facility] [address] [place] [address] [address] [place] [address] OFFICE VISIT Date of Service: 02/22/18 MR#: [id number] Acct: [id number] Name: NIGHAT NEUMANN Rep #: [id number] : 1970 Provider: Jose SANCHES Age/Sex: 47/F Location[place] [facility] Status: Signed Intake Vital Signs02/22/18 Height 5 ft 8 in Intake Visit Reasons: SINUS CONGESTION Chief Complaint: Sinus pressure, postnasal drip Allergies No Known Allergies Allergy (Verified 02/22/18 12:28) Medications bupropion HCl XL 150 mg 24 hr tablet, extended release 2 tab PO DAILY 30 Days #30 10/17/17 [History Confirmed 02/22/18] cetirizine 10 mg capsule 10 mg PO QDAY 10/17/17 [History Confirmed 02/22/18] levothyroxine 75 mcg tablet 1 tab PO DAILY 90 Days #90 10/17/17 [History Confirmed 02/22/18] lithium carbonate ER 300 mg tablet,extended release 1 tab PO DAILY 30 Days #90 10/17/17 [History Confirmed 02/22/18] rosuvastatin 5 mg tablet 1 tab PO DAILY 30 Days #30 10/17/17 [History Confirmed 02/22/18] verapamil ER (SR) 180 mg tablet,extended release PO 30 Days #30 10/17/17 [History Confirmed 02/22/18] Mountainaire Carbonate [Lithobid] 2 tab PO QHS 11/27/17 [History Confirmed 02/22/18] Valacyclovir HCl [Valtrex] 1,000 mg PO TID 11/27/17 [History Confirmed 02/22/18] Verapamil [Calan Sr] 1 tab PO DAILY 11/27/17 [History Confirmed 02/22/18] azithromycin 250 mg tablet See Label Instructions PO .COMPLEX #6 tab 02/22/18 [Rx Confirmed 02/22/18] [facility] Medical History Migraines (Acute) SOB (shortness of breath) (Acute) Seasonal allergies (Acute) Seasonal depression (Acute) Thyroid disease (Acute) Family History Other CVA (cerebral vascular accident) Depression Environmental allergies Heart disease Hypertension Social History Smoking Status: Never smoker alcohol intake: current alcohol intake frequency: a few times a month HPI HPI Chief Complaint: Sinus pressure, postnasal drip Details: NIGHAT NEUMANN, is a 47 F who presents to the office today for sinus congestion, nasal drainage and cough for the past 4 days. Patient describes her cough as productive of green/yellow sputum with no hemoptysis, shortness of breath or difficulty breathing. She also reports a fever with a T-max of 100 F wich was responsive to Tylenol. She has tried Mucinex for the cough with little effect. She denies nausea, vomiting, diarrhea. No other associated symptoms or alleviating/aggravating factors. ROS Const Constitutional: Positive for fever(s); no chills, headache(s), night sweats or abnormal sleep pattern ENT ENT: Positive for nasal discharge, nasal congestion and post nasal drip; no headache(s), ear pain, ear discharge or sore throat Resp Respiratory: Positive for cough Cough: Yes non-productive; no wheezing, hemoptysis, shortness of breath or pain with cough Cardio Cardiology: No chest pain at rest or shortness of breath Neuro Neurology: No headache(s), behavioral changes or confusion Psych Psychiatric: No abnormal sleep pattern, No behavioral changes, No confusion Aller/Imm Allergy/Immunologic: No wheezing Exam Const General: cooperative, well developed [facility] Head: normal to inspection, atraumatic Ears: hearing grossly normal bilaterally Nose: nasal discharge clear Face and sinus: normal facial exam Mouth: oral mucosae normal Throat: abnormal tonsil bilaterally Resp Effort AND Inspection: normal respiratory effort, no audible wheezes Auscultation: Bilateral: Clear to Auscultation Cardio Palpation: normal PMI Rate: regular rate Rhythm: regular rhythm Neuro General: alert, CN's II-XI intact bilaterally Psych Appearance: grossly normal Mental Status: mental status grossly normal Assessment AND Plan Problems 1. URI, acute J06.9 Status Acute Plan Azithromycin as prescribed today. Encouraged to get plenty of rest, drink lots of clear liquids, and use Tylenol or Ibuprofen (unless contraindicated) for fever and comfort. Patient also educated on other symptomatic management techniques. To be seen in 7-10 days if no improvement; sooner if worsening of symptoms. Patient advised of potential red flags and when appropriate report to the ED. Patient verbalized understanding of all the above. Medications New: Coding Level of Care Code Off vis,est,level 3 Diagnoses URI, acute J06.9 02/22/18 1254 <Electronically signed by Jose SANCHES> Date Jose SANCHES Cosigner Signature: Date (if applicable) CC: PROGRESS Observed: 12/06/2017 Status: COMPLETED Source: [place] 12:30 PM [facility] REPOSITORY O ID: [id number] Author: Corrie Ramirez Service: (none) Author Type: Physician Type: Progress Notes Filed: 12/06/2017 1:24 PM Note Text: MARVIN Neumann is a 47 year old woman who presents for her annual exam: Last pap 2 yrs, Mammo 2 yrs, Bone Density never, No LMP recorded. Patient has had an ablation.. She would like to know if she is menopausal. FSH, vit D. She is on augmentin for colitis. She was having RLQ pain. She had LEEP for abnl pap, HPV '14 and would like HPV tested. She had CT and they thought it was her bowels Medications, Allergies, Surgeries, Family History updated and smoking status updated. Discussed health maintenance, including regular aerobic exercise, low fat diet, and periodic exams. HISTORIES FAMILY HISTORY Problem Relation Age of Onset - Hypertension Father HEART PROBLEMS - Psychiatry Father depression, bipolar - ALCOHOLISM [OTHER] Father - Stroke Mother - Psychiatry Paternal Grandmother bipolar - Breast Cancer Maternal Aunt - Breast Cancer Paternal Aunt PAST MEDICAL HISTORY Diagnosis Date - Allergic rhinitis, cause unspecified - Excessive or frequent menstruation Heavy periods - Hypokalemia 04/07/2009 - Irregular menstrual cycle Irregular periods - Other acne - PMH - PAST MEDICAL HISTORY OF Bipolar - Premenstrual tension syndromes - Unspecified hypothyroidism Hypothyroidism PAST SURGICAL HISTORY Procedure Laterality Date - YOUNG 10/11/2010 - PAST SURGICAL HISTORY OF 1991 ORIF OF R ARM ACTIVE PROBLEM LIST Disturbance of Skin Sensation Other Specified Visual Disturbances Irregular Menstrual Cycle Excessive Or Frequent Menstruation Family History of Malignant Neoplasm of Breast Hemiplegic Migraine Raynaud Phenomenon Abnormal Antinuclear Antibody Titer Bipolar Affective Disorder (Hcc) ALLERGIES Allergen Reactions - Duloxetine Hcl Hives - Erythromycin Unknown - Erythromycin Base GI upset - Lamictal [Lamotrigi* Itching - Minocycline Intolerance VISUAL DISTURBANCE - Prozac [Fluoxetine * Rash - Seasonal Allergies Unknown Current Outpatient Prescriptions: amoxicillin-clavulanic acid (AUGMENTIN) 875-125 mg per tablet Take 1 tablet by mouth q 12 HR. buPROPion XL (WELLBUTRIN XL) 300 mg 24 hr tablet Take 300 mg by mouth. fluticasone (FLONASE) 50 mcg/actuation nasal spray Use in the nose. verapamil SR (CALAN SR) 120 mg ORAL CR tablet Take 1 tablet by mouth daily at bedtime. lithium carbonate SR 300 mg ORAL CR tablet Take 1 tablet by mouth twice daily. levothyroxine 75 mcg ORAL tablet Take 1 tablet by mouth once daily. valacyclovir (VALTREX) 500 mg ORAL tablet Take 1 tablet by mouth twice daily. rosuvastatin (CRESTOR) 5 mg tablet Take 5 mg by mouth once daily. valACYclovir (VALTREX) 1 gram tab TAKE ONE TABLET BY MOUTH EVERY EIGHT HOURS FOR SEVEN DAYS verapamil SR (CALAN SR, ISOPTIN SR) 180 mg CR tablet TAKE ONE TABLET BY MOUTH EVERY NIGHT levonorgestrel (PLAN B) 0.75 mg ORAL tablet Take 1 tablet by mouth. TAKE ONE(1) TABLET NOW THEN TAKE ONE(1) TABLET 12 HOURS AFTER TAKING THE FIRST TABLET. (Patient not taking: Reported on 12/06/2017 ) ondansetron (ZOFRAN) 8 mg ORAL tablet Take 0.5 tablets by mouth every 8 hours as needed for Nausea/Vomiting. Would take 1 tablet po 1/2 hr before taking plan b tablets (Patient not taking: Reported on 12/06/2017 ) quetiapine (SEROQUEL) 25 mg ORAL tablet Take by mouth daily at bedtime. ALPRAZolam (XANAX) 0.25 mg ORAL tablet Take by mouth. 1-2 tablets daily as needed duloxetine (CYMBALTA) 30 mg ORAL capsule Take 1 capsule by mouth three times daily. naproxen 500 mg ORAL tablet Take one(1) tablet twice daily as needed for pain, with food. (Patient not taking: No sig reported) No current facility-administered medications for this visit. REVIEW OF SYSTEMS GENERAL: No weight loss, malaise or fevers HEENT: No changes in hearing or vision NECK: Negative for lumps, goiter, pain and significant neck swelling RESPIRATORY: Negative for cough, wheezing, dyspnea or shortness of breath CARDIOVASCULAR: Negative for chest pain or palpitations GI: Negative for abdominal discomfort, blood in stools or black stools, change in bowel habit, diarrhea, nausea, vomiting, constipation : No history of dysuria, frequency or incontinence REVIEW ENGINEER: Negative for abnormal vaginal bleeding, abnormal vaginal discharge or Breast symptoms ENDOCRINE: Negative for cold or heat intolerance, polyuria, polydipsia and goiter NEURO: No history of headaches, syncope, paralysis, seizures or tremors OBJECTIVE BP 112/80 Ht 5' 7 (1.70m) Wt 161 lb (73.0kg) BMI 25.21 kg/(m2). HEENT: Within normal limits NECK: Supple, no thyromegaly BREASTS: No masses, no nipple discharge; bilateral implants HEART: Regular rate and rhythm without murmur, rub, or gallop LUNGS: Clear bilaterally to auscultation ABDOMEN: No masses, non tender, no hernias, no hepatosplenomegaly PELVIC: EGBUS: No lesions, normal appearance VAGINA: No discharge, no blood, no lesions CERVIX: No lesions, non tender UTERUS: Anteverted, normal size, non tender ADNEXA: Non tender, no masses RECTOVAGINAL: Not examined EXTREMITIES: No edema, no calf tenderness NEUROLOGICAL: Grossly intact ASSESSMENT/PLAN: 1. Encounter for gynecological examination (general) (routine) without abnormal findings - ICD9: V72.31, ICD10: Z01.419 (primary diagnosis) - Completed pelvic and breast exam - Encouraged monthly BSE - Follow up for annual exam in one year. - THINPREP(R) PAP TEST W/RFX HPV MRNA E6/E7 ([facility]) - ROEL SCREENING 2. Secondary amenorrhea - ICD9: 626.0, ICD10: N91.1 - FSH BLD 3. Hormone disturbance - ICD9: 259.9, ICD10: E34.9 4. Vitamin D deficiency - ICD9: 268.9, ICD10: E55.9 - VITAMIN D 25 HYDROXY 5. Human papilloma virus infection - ICD9: 079.4, ICD10: B97.7 - HPV HIGH RISK Corrie Ramirez MD OBSOLETE Observed: 12/06/2017 Status: COMPLETED Source: [place] 12:00 AM [facility] REPOSITORY Letter Text [address] [facility] [address] [facility] [address] Corrie Naranjo PA-C [address] [facility] [place] [address] December 17, 2017 Re: Nighat Neumann : 1970 Dear Ms. Neumann, Thank you for choosing [facility] for your medical care. The labs listed below are the results of your recent lab tests: Pap smear: Normal HPV: Negative If you have any questions or concerns please feel free to call me. Sincerely, External Provider (Electronically signed to expedite patient care) EMERGENCY DEPARTMENT Observed: 11/28/2017 Status: F Source: [place] SUMMARY 8:15 AM [facility] [place] [place] REPOSITORY [facility] Medical Records Department [address] [place] [address] Emergency Department Summary 11/28/17 0041 MR#: [id number] Acct: [id number] Name: NIGHAT NEUMANN Rep #: [id number] : 1970 47 From: Willi Taylor MD PCP: Jayden Ward MD Status: DEP ER - ER Visit Summary Date of Service: 11/28/17 Chief Complaint: Abdominal pain History of Present Illness: The patient is a 47 F presenting for evaluation secondary to abdominal pain. Patient reports that at approximately 130 today she had a sudden onset of diarrhea. She reports that she had 4 episodes of nonbloody non-mucousy diarrhea. She states it has been associated with nausea and a gradual onset of right lower quadrant abdominal pain. Patient states that the abdominal pain seems to be somewhat migratory now moving to the left side of her abdomen and radiating through to her back. Has no leaving factors is little bit worse with palpation and has been associated with subjective chills. Patient denies any recent exposures to antibiotic or travel. Review of systems otherwise negative. Physical Examination: Vital signs are within normal limits, patient is afebrile. General: Patient is well-nourished well-developed and in no acute distress. Head: Normocephalic, atraumatic Eyes: Pupils equal round and reactive bilaterally, extra occular motion intact bialterally ENT: Moist mucous membranes Neck: Supple, no lymphadenopathy, no JVD, no meningismus CVS: Heart regular rate and rhythm, no murmurs, rubs or gallops, radial pulses 2+ bilaterally Resp: Respirations nondistressed, lung sounds clear bilaterally Abdomen: Soft, tender in the epigastrium and left lower quadrant without any guarding or rebound, nondistended, no palpable masses, normal bowel sounds Back: Nontender Extremities: Nontender, atraumatic, active full range of motion, no peripheral edema Skin: warm, no rashes, no petechia Neuro: Alert and oriented x 4, CN 2-12 intact, no lateralizing neurological defecits Psyc: Normal affect Test Results: CT abdomen and pelvis shows colitis of the transverse colon, CBC chemistry liver lipase and urinalysis unremarkable Emergency Department Course and Treatment: Patient presented for evaluation secondary to abdominal pain. Workup as noted above showed evidence of colitis. Repeat evaluation showed patient to continue to have a nonsurgical abdomen. Given the fact that she does have some localized colitis I will treat this with antibiotics. She has does not have any blood, has never really had any prior similar episodes, I am not really concerned for inflammatory bowel disease at this point. Patient was recommended follow-up with primary care. Disposition: Discharge Impression: 1. Colitis This note was generated with [employer]atrics dictation software. It may contain incorrect words, spelling, and punctuation that were not noted in review of the chart prior to signing ED Disposition - Plan for ED Patient: Disposition: Home or Assisted Living Chief Complaint: Abd Pain Diagnosis: Colitis Instructions: ED Gastroenteritis Bacterial Prescriptions: Hydrocodone Bitart/Apap 5-325 [[place] 5MG-325MG] 1 tab PO Q4H PRN PRN 2 Days #10 tab PRN Reason: Pain Amox/Clavulanate Tablet [Augmentin Tablet] 875 mg PO Q12H #20 tab Referrals: Jayden Ward MD [Primary Care Provider] - 3-5 Days What to do if you have Problems For any increased pain, shortness of breath, bleeding, nausea or vomiting, chest pain, or any unexpected problems, contact your Primary Care Provider. Call [facility] ([phone]) or report to the closest Emergency Room. Call 911 if necessary. 11/28/17814 <Electronically signed by Willi Taylor MD> Date Willi Taylor MD Cosigner Signature (If Indicated): Date CC: Jayden Ward MD ABDOMEN/PELVIS WITHOUT Observed: 11/27/2017 Status: F Source: [place] CONT 10:21 PM [facility] [place] [place] REPOSITORY [facility] Imaging Services [address] [place] [id number] Abdomen/Pelvis without Cont MR#: [id number] Acct: [id number] Name: NIGHAT NEUMANN Rep #: [id number] : 1970 F 47 From: Melanie Khanna MD PCP: Jayden Ward MD Status: REG ER Study: Abdomen/Pelvis without Cont Date of Exam: 11/27/17 Exam# [id number] Ordering Dr: Willi Taylor MD STUDY: CT ABDOMEN AND PELVIS WITHOUT CONTRAST REASON FOR EXAM: Female, 47 years old. Back and right lower quadrant pain and loose stools, RADIATION DOSAGE (If Supplied By Facility): CTDIvol = ( 7.54 ) mGy, DLP = ( 391.80 ) mGycm TECHNIQUE: Transaxial images were obtained from the dome of the diaphragm to the symphysis pubis without oral contrast, and without intravenous contrast. Sagittal and coronal images were reconstructed. Individualized dose optimization techniques were used for this CT. COMPARISON: None. FINDINGS: The visualized lung bases are unremarkable. The visualized portions of the heart are within normal limits. There are bilateral breast implants. Normal liver. Normal gallbladder and extrahepatic biliary system. There is a extra spleen or splenule demonstrated nearly equal size. Each measuring approximately 5.5 cm. Normal pancreas. Normal bilateral adrenal glands. Normal right kidney. Normal left kidney. Normal visualized stomach. There are mildly distended loops of small bowel present. There is a decompressed appearance of the colon. Within the transverse colon there is focal absence of stool in possible wall thickening. This is versus peristalsis. The appendix is visualized and appears normal. Normal abdominal aorta. Normal inferior vena cava. Normal retroperitoneum. Normal urinary bladder. Normal visualized uterus. There is a small umbilical hernia containing fat. There are diffuse degenerative changes of the visualized lumbar spine. There is multilevel degenerative change. At the level of L4-L5 there is a broad disc bulge with mild to moderate neural foramina narrowing mild central stenosis. At L5-S1 there is disc space narrowing and endplate sclerosis. There is degenerative change of the SI joints. CT/Abdomen/Pelvis without Cont IMPRESSION: Degenerative change of the thoracolumbar spine. No visualized obstructing renal ureteral bladder calculi. There may be a segment of mild colitis in the transverse colon versus peristalsis. Electronically Signed: Melanie Khanna MD at 23:43 EDT Tel , Service support , CC: Jayden Ward MD; Willi Taylor 2Nd Pressman: Signed CBC W/DIFF, AUTOMATED Collected: 11/27/2017 Status: F Source: [place] 10:15 PM [facility] [place] [place] REPOSITORY TYPE CODE TESTS RESULT OUT OF RANGE REFERENCE UNITS LAB L100.1000 4.4-11.0 K/mm3 Normal WBC 4.9 LAB L100.1200 4.2-5.4 M/mm3 Normal RBC 4.46 LAB L100.1300 12.0-15.0 g/dl Normal HGB 13.6 LAB L100.1400 37-47 % Normal HCT 41.4 LAB L100.1500 81-99 fL Normal MCV 92.8 LAB L100.1600 27.0-32.0 pg Normal MCH 30.5 LAB L100.1700 32-36 g/gl Normal MCHC 32.9 LAB L100.1810 11.6-14.6 % Normal RDW CV 13.2 LAB L100.1820 35.1-43.9 fl High RDW SD 44.9 LAB L100.1900 150-450 K/mm3 Normal PLT 310 LAB L100.2000 6.2-12.0 fl Normal MPV 8.7 LAB L100.2100 47-70 % Normal NEUT% 55.7 LAB L100.2200 19-41 % Normal LY% 34.3 LAB L100.2300 0-10 % Normal MONO% 5.7 LAB L100.2400 0-5 % Normal EO% 3.9 LAB L100.2500 0-1 % Normal BASO% 0.4 LAB L100.2550 0.0-0.9 % Normal IM GRAN % 0.000 Result Comment: IG% - Immature Granulocytes (promyelocytes, myelocytes and metamyelocytes) > 1% indicates that a LEFT SHIFT is Present. LAB L100.2620 2.0-7.7 X10 3/uL Normal Absolute Neut 2.7 LAB L100.2720 0.83-4.51 X10 3/ul Normal Absolute Lymph 1.68 Performed By: #### L100.0100 #### [facility] [address] [place], [place] [address]all [facility]. [place], [place], [address] COMPREHENSIVE METABOLIC Collected: 11/27/2017 Status: F Source: [facility] 10:15 PM [facility] [place] [place] REPOSITORY TYPE CODE TESTS RESULT OUT OF RANGE REFERENCE UNITS LAB L501.0100 74-106 mg/dL Normal GLU 97 Result Comment: Please note revised GLUCOSE reference range effective 2017. LAB L501.1000 7-18 mg/dL Normal BUN 8 LAB L501.1100 0.55-1.02 mg/dL Normal CREAT,SERUM 0.99 Result Comment: The validity of the calculated GFR AND GFRAA in patients over 70 years has not been determined. Clinical correlation is essential. LAB L501.1110 >60 mL/min Normal EST GFR 63 Result Comment: Non- GFR Calc LAB L501.1115 >60 mL/min Normal EST GFR - AA 77 Result Comment: GFR Calc LAB L501.1255 ml/min Normal Estimated CRCL 69.34 LAB L501.1300 10-20 RATIO Low BUN/CRE 8.1 LAB L501.1500 6.4-8. g/dL Normal 2 T PROT 7.0 LAB L501.1800 3.2-5. g/dL Normal 0 ALB 3.8 LAB L501.1950 2.2-4. g/dL Normal 2 GLOB 3.2 LAB L501.2000 0.9-2. RATIO Normal 4 A/G 1.2 LAB L501.2200 8.5-10 mg/dL Normal .1 CA 9.0 LAB L501.4100 15-37 U/L Normal AST 28 LAB L501.4305 45-117 U/L Normal ALK P 73 LAB L501.4405 13-56 U/L Normal ALT 47 LAB L501.4600 0.20-1 mg/dL Normal .00 T BILI 0.50 LAB L501.5300 136-14 mmol/L Normal 5 NA 142 LAB L501.5600 3.5-5. mmol/L Low 1 K 3.4 LAB L501.5900 98-107 mmol/L High CL 110 LAB L501.6100 21.0-3 mmol/L Normal 2.0 CO2 27.0 LAB L501.6200 5-15 Normal GAP 5 Performed By: #### L500.4050, L501.2450 #### [facility] [address] [place], [address] LIPASE Collected: 11/27/2017 Status: F Source: [place] 10:15 PM [facility] [place] [place] REPOSITORY TYPE CODE TESTS RESULT OUT OF RANGE REFERENCE UNITS LAB L501.2450 73-393 U/L Normal LIPASE 274 Performed By: #### L500.4050, L501.2450 #### [facility] [address] [place], [address] URINALYSIS, COMPLETE Collected: 11/27/2017 Status: F Source: [place] 10:15 PM [facility] [facility] [place] [place] REPOS[facility]ORY Order Comment: Order Date: 11/27/17 How was Urine Obtained? CLEAN CATCH TYPE CODE TESTS RESULT OUT OF RANGE REFERENCE UNITS LAB L400.3000 Yellow COLOR Normal Yellow LAB L400.3050 Clear Normal CLARITY Clear LAB L400.3200 Normal mg/dl Normal GLUCOSE, UR Normal LAB L400.3300 Negative mg/dL Normal BILIRUBIN URINE Negative LAB L400.3400 Negative mg/dl Normal KETONE UR Negative LAB L400.3465 1.002-1.030 Normal SP.GR. DIPSTX 1.010 LAB L400.3550 5.0 - 8.0 pH UR Normal 7.0 LAB L400.3600 Negative mg/dl PROT Normal DIPSTX Negative LAB L400.3700 Normal mg/dl Normal UROBILI Normal LAB L400.3750 Negative Normal NITRITE UR Negative LAB L400.3780 Negative /ul Normal OCCULT BLOOD-UR Negative LAB L400.3800 Negative /ul High LEUK 25 ESTERASE LAB L400.4050 0-5 /hpf WBC Normal 0-5 SEEN LAB L400.4100 0-5 /hpf 0 Normal RBC-UA SEEN LAB L400.4150 5-10 /hpf SQUAM 0 Normal EPI SEEN LAB L400.4300 None Seen /hpf 0 Normal BACTERIA SEEN LAB L400.4350 <or=2+ /hpf 0 Normal MUCUS, URINE SEEN Performed By: #### L400.0001 #### [facility] [address] [place], [place], [address] LITHIUM Collected: 11/27/2017 Status: F Source: BETTYE 10:15 PM [facility] [place] [place] REPOSITORY TYPE CODE TESTS RESULT OUT OF RANGE REFERENCE UNITS LAB L501.9060 0.60-1.20 mmol/L Normal LI 1.00 Performed By: #### L501.9060 #### [facility] [address] [place], [place], [address] URGENT CARE VISIT Observed: 10/17/2017 Status: F Source: BETTYE REPORT 10:32 AM [facility] [place] [place] REPOSITORY Now [address] [place] [address] OFFICE VISIT Date of Service: 10/17/17 MR#: [id number] Acct: [id number] Name: NIGHAT NEUMANN Rep #: [id number] : 1970 Provider: Prashanth SANCHES Age/Sex: 47/F Location[place] [facility] Status: Signed Intake Vital Signs10/17/17 Height 5 ft 7.5 in Intake Visit Reasons: Sinus infection Chief Complaint: Sinus pressure, postnasal drip Is patient in pain?: No Allergies No Known Allergies Allergy (Unverified 10/17/17 08:19) Medications amoxicillin 500 mg capsule 1,000 mg PO BID 10 Days #40 cap 10/17/17 [Rx] bupropion HCl XL 150 mg 24 hr tablet, extended release PO 30 Days #30 10/17/17 [History Confirmed 10/17/17] celecoxib 50 mg capsule 100 mg PO BID 10/17/17 [History Confirmed 10/17/17] cetirizine 10 mg capsule 10 mg PO QDAY 10/17/17 [History Confirmed 10/17/17] levothyroxine 75 mcg tablet PO 90 Days #90 10/17/17 [History Confirmed 10/17/17] lithium carbonate ER 300 mg tablet,extended release PO 30 Days #90 10/17/17 [History Confirmed 10/17/17] rosuvastatin 5 mg tablet PO 30 Days #30 10/17/17 [History Confirmed 10/17/17] verapamil ER (SR) 180 mg tablet,extended release PO 30 Days #30 10/17/17 [History Confirmed 10/17/17] PFSH Medical History Migraines (Acute) SOB (shortness of breath) (Acute) Seasonal allergies (Acute) Seasonal depression (Acute) Thyroid disease (Acute) Family History Other CVA (cerebral vascular accident) Depression Environmental allergies Heart disease Hypertension Social History Smoking Status: Never smoker alcohol intake: current alcohol intake frequency: a few times a month HPI HPI Chief Complaint: Sinus pressure, postnasal drip Details: NIGHAT NEUMANN, is a 47 F who presents to the office today for initial evaluation approximately 1 week history of progressively worsening sinus pressure with hoarse voice and postnasal drip. Patient notes over the last 2-3 days developing intermittent chills, spitting up exudative purulent discharge. She notes occasional chills though no complaints of fever, sweats, rash, chest pain/shortness of breath, or cough. She is a non-smoker, noting no other family members and household with similar signs or symptoms. No other associated symptoms and no other alleviating factors. ROS Const Constitutional: Positive for chills; no excessive sweating, abnormal sleep pattern, fever(s), night sweats or body ache Eyes Eyes: No change in vision ENT ENT: Positive for post nasal drip, sinus pressure and nasal congestion; no abnormal hearing, ear pain, ear discharge, ear pressure, hearing loss or sore throat Resp Respiratory: No cough, chest congestion or shortness of breath Cardio Cardiology: No excessive sweating, chest pain at rest, chest pain with exertion, shortness of breath, dyspnea on exertion, irregular heart rhythm, generalized swelling or leg pain with exertion Gastro GI: No abdominal pain, change in stool character or change in bowel habits Skin Skin: No rash Neuro Neurology: No abnormal hearing, abnormal speech or abnormal movements Psych Psychiatric: No abnormal sleep pattern Endo Endocrine: No excessive sweating Exam Const General: cooperative, healthy appearing, no acute distress, comfortable Nutritional Appearance: average body habitus Orientation: alert, awake, oriented x3 HENMT Head: normal to inspection Ears: hearing grossly normal bilaterally, external ears normal, TM's normal bilaterally, EAC's normal Nose: external nose normal, nares normal, septum normal, no nasal discharge Face and sinus: normal facial exam, sinus tenderness maxillary, face symmetric Mouth: oral mucosae normal, lip normal, oropharynx normal, tongue normal Teeth and gingiva: gingiva normal, dentition normal Throat: uvula midline, tonsils normal, posterior oropharynx normal, postnasal drainage (Scant purulent) Eyes General: appearance normal, both eyes and all related structures Neck Neck: normal visual inspection, full ROM, no lymphadenopathy, no meningeal signs, supple Neck mass: No Thyroid: thyroid normal Lymphatic: no lymphadenopathy noted Chest Chest palpation AND inspection: normal inspection of the chest Resp Effort AND Inspection: normal respiratory effort, able to speak in complete sentences, symmetric chest movement Auscultation: Bilateral: Clear to Auscultation Cardio Palpation: normal PMI Rate: regular rate Rhythm: regular rhythm Heart Sounds: S1 normal, S2 normal, no gallops, no murmurs, no rubs Pulses: radial pulses present GI Inspection: normal to inspection Skin General: no rashes or lesions noted Neuro General: alert, awake, oriented x3, gait normal Cognition: normal cognition Speech: speech normal Gait: normal gait Motor: muscle tone normal throughout Sensory Exam: no sensory deficits noted Psych Appearance: grossly normal Mental Status: mental status grossly normal Mood: congruent mood Affect: normal affect Speech and Movement: speech and movement normal Attitude: cooperative Thought Process: normal Thought Content: normal Judgment: judgment good Assessment AND Plan 1. Sinusitis J32.9 Plan Detail Other Medications New: Additional Comments Amoxicillin so as prescribed today. Clear fluids, rest, Advil/Tylenol, warm facial compresses as needed as instructed today. Avoid tobacco smoke exposure. Follow-up with PCP in 3-5 days should symptoms not improved, sooner should symptoms worsen or any other concerns develop. Patient states acknowledging understanding all the above. This note was generated with [employer] software. It may contain incorrect words, spelling, and punctuation that were not noted in checking the note before signing. Coding Level of Care Code Off vis,new,level 3 Diagnoses Sinusitis J32.9 10/17/17 1032 <Electronically signed by Prashanth SANCHES> Date Prashanth SANCHES Cosigner Signature: Date (if applicable) CC: ALLERGIES ALLERGIES DATE TYPE / CODE NAME / CODE REACTION SEVERITY SOURCE Drug No Known Unknown Bettye 9 Allergy/647930487( Allergies/C889280 [facility] SNOMED CT) 388(RXNORM) Hospital Repository Miscellaneous Erythromycin Nausea/Vom/Di NC Bettye 9 Allergy/323686212( arrhea [facility] SNOMED CT) Hospital Repository ENCOUNTERS ENCOUNTERS ADMIT/DISCHARGE ACCOUNT ADMITTING ENCOUNTER LOCATION SOURCE NUMBER CLASS 07/03/2018/ [id number] Ambulatory BMSBuilding:B [address] [facility] 9 [facility] 06/26/2018 [id number] Ambulatory [address] 6 [facility] ing:[facility] Repository 06/26/2018/ [id number] Ambulatory BMSBuilding:B [address] 1 [facility] Repository 02/25/2018/ [id number] Ambulatory BMSBuilding:B [address] 1 [facility] Repository 02/22/2018/ [id number] Ambulatory BMSBuilding:B [address] 2 [facility] Repository 11/27/2017/ [id number] Emergency [address] 1 [facility] Repository 11/19/2017/ [id number] Ambulatory BMSBuilding:B [address] 8 [place] Repository 10/17/2017/ [id number] Ambulatory BMSBuilding:B [address] 4 [place] Repository PAYERS PAYERS ENCOUNTER GUARANTOR PAYER SUBSCRIBER SOURCE 07/03/2018 NIGHAT D [id number] Primary NIGHAT D KECKDOB: [address] [place] Insurance:[facility] [id number] [place], [place] Number: Hospital [address]Axv: 330 [id number] Repository [phone] () Date:5730-43-61[address], [place] [address]OC: 07/03/2018 Secondary NOT GIVENUNK Bettye Insurance:SELF PAY [facility] Number: Effective Repository Date:2018-07-03 06/26/2018 NIGHAT D [id number] Primary NIGHAT D NELDOB: [address] [place] Insurance:[id number] [address]Cfq: (330) Number: Repository [phone] () [id number] Date:9572-45-92LP [address], [place] [address]EP: 06/26/2018 Secondary NOT GIVENUNK [address] Insurance:SELF PAY [facility] Number: Effective Repository Date:2018-06-26 06/26/2018 NIGHAT D [id number] Primary NIGHAT D KECKDOB: Bettye [place] Insurance:[facility] [id number] [place] Number: Hospital [address]Xui: (330) [id number] Repository [phone] () Date:1833-01-42[address] [address]ZX: 06/26/2018 Secondary NOT GIVENUNK [address] Insurance:SELF PAY [facility]: Effective Repository Date:2018-06-26 02/25/2018 NIGHAT D [id number] Primary NIGHAT D KECKDOB: [address] [place] Insurance:[employer] [id number] [place] [facility] [address]Pjc: (330) [id number] Repository [phone] () Date:1996-92-[address] [address]NZ: 02/25/2018 Secondary NOT GIVENUNK [address] Insurance:SELF PAY [facility] Number: Effective Repository Date:2018-02-25 02/22/2018 NIGHAT D [id number] Primary NIGHAT D KECKDOB: [address] [place] Insurance:[employer] [id number] [place] Number[facility] Hospital [address]Ivp: (330) [id number] Repository [phone] () Date:4742-06-95[address] [address]LD: 02/22/2018 Secondary NOT GIVENUNK [address] Insurance:SELF PAY [facility] Number: Effective Repository Date:2018-02-22 11/27/2017 NIGHAT D [id number] Primary NIGHAT D KECKDOB: Bettye [place] Insurance:[employer] [id number] Number[place] Hospital [address]Etw: (330 [id number] Repository [phone] () Date:3176-51-20[address] [address]QF: 11/27/2017 Secondary NOT GIVENUNK Bettye Insurance:SELF PAY [facility] Number: Effective Repository Date:2017-11-27 11/19/2017 NIGHAT D [id number] Primary NIGHAT D KECKDOB: Bettye [place] Insurance:[employer] [id number] [facility] [place] Number: Hospital [address]Slv: 330 [id number] Repository [phone] () Date:2455-93-67[address]X [address], [place] [address]MK: 11/19/2017 Secondary NOT GIVENUNK Bettye Insurance:SELF PAY [facility] Number: Effective Repository Date:2017-11-29 10/17/2017 Asif [id number] Primary NIGHAT Marcelina RAMOSB: Bettye [place] Insurance:[employer] [id number] [facility] Number: [facility] [address]Fmt: 330 [id number] Repository [phone] () Date:6575-53-08[address], [place] [address]AN: 10/17/2017 Secondary NOT GIVENUNK [address] Insurance:SELF PAY [facility] Number: Effective Repository Date:2017-10-17
== END ==
PROVIDERS: Family Provider Family Medicine; PCP Family Medicine; Referring Provider Physician Assistant; Visit Provider Physician Assistant
DX: M25.511 Pain in right shoulder (principal); M54.2 Cervicalgia; M54.6 Pain in thoracic spine; M54.5 Low back pain
CPT/HCPCS: 72040; 72070; 72080; 72100; 73030

== ENCOUNTER → 2018-09-23 09:38 | Outpatient (CLI) | payer OTHER, SELFPAY ==
[2018-09-11 14:55] VITALS: BMI 24.1
[2018-09-23 11:04] LABS: ALB/GLOB Ratio 1.2 RATIO (0.9-2.4); AST(SGOT) 25 U/L (15-37); Alanine Aminotransfer ALT/SGPT 44 U/L (13-56); Albumin, Serum 3.9 g/dL (3.2-5.0); Alkaline Phosphatase 79 U/L (45-117); Anion Gap 4 (5-15); BUN 12 mg/dL (7-18); BUN/Creat Ratio 12.2 RATIO (10-20); Calcium,Total 8.9 mg/dL (8.5-10.1); Chloride 108 mmol/L (98-107); Cholesterol 124 mg/dL (200); Creatinine, Serum 0.98 mg/dL (0.55-1.02); EST Glomerular Filtration Rate 64 mL/min (>60); Est Glom Filt Rate - Afr Amer 77 mL/min (>60); Globulin 3.2 g/dL (2.2-4.2); Glucose 83 mg/dL (74-106); High Density Lipoprotein 66 mg/dL; Potassium 3.8 mmol/L (3.5-5.1); Protein, Total 7.1 g/dL (6.4-8.2); Sodium Level 139 mmol/L (136-145); T4 Free Direct 1.13 ng/dL (0.76-1.46); Thyroid Stim Hormone (TSH) 1.65 uIU/mL (0.358-3.74); Triglycerides 49 mg/dL; Very Low Density Lipoprotein 10 mg/dL (5-40)
== END ==
PROVIDERS: Family Provider Internal Medicine; PCP Internal Medicine; Referring Provider Internal Medicine; Visit Provider Internal Medicine
DX: E07.9 Disorder of thyroid, unspecified (principal); E78.5 Hyperlipidemia, unspecified; E03.9 Hypothyroidism, unspecified; Z79.899 Other long term (current) drug therapy
CPT/HCPCS: 36415; 80053; 80061; 80178; 84439; 84443

== ENCOUNTER → 2019-06-17 13:13 | Outpatient (CLI) | payer OTHER, SELFPAY ==
[2019-06-17 13:12] VITALS: BMI 26.6
--- NOTE | 2019-06-17 13:13 | RAD_ITS ---
STUDY: X-RAY CHEST REASON FOR EXAM: Female, 49 years old. BRONCHITIS TECHNIQUE: PA and lateral views of the chest. COMPARISON: None. FINDINGS: The lungs are clear and expanded. Scattered calcified granulomas. There is no demonstrated pleural abnormality. Normal size heart. Normal mediastinum and aga. Normal visualized pulmonary arteries. There is atherosclerotic tortuosity of the aortic arch and descending thoracic aorta. Normal visualized thoracic spine. Normal visualized ribs, clavicles, and shoulders. There is no demonstrated abnormality of the visualized soft tissue structures of the upper abdomen. RAD/Chest PA and Lateral IMPRESSION: Normal x-ray examination of the chest. Electronically Signed: Dez Lopez, at 13:57 EST , Service support ,
== END ==
PROVIDERS: Family Provider Internal Medicine; PCP Internal Medicine; Referring Provider Physician Assistant; Visit Provider Physician Assistant
DX: R05 Cough (principal)
CPT/HCPCS: 71046

== ENCOUNTER → 2019-06-19 15:59 | Outpatient (CLI) | payer OTHER, SELFPAY ==
[2019-06-19 15:13] VITALS: BMI 26.6
[2019-06-19 17:29] LABS: Absolute Neutrophil Count 3.4 X10^3/uL (2.0-7.7); Basophil# 0.08 X10^3/uL; Basophil% 1.4 % (0-1); Eosinophil# 0.28 X10^3/uL; Eosinophils% 4.7 % (0-5); Hematocrit 44.3 % (37-47); Hemoglobin 14.1 g/dL (12.0-15.0); Lymphocyte % 28.7 % (19-41); Mean Corp Hgb Conc 31.8 g/dL (32-36); Mean Corpuscular Hgb 29.9 pg (27.0-32.0); Mean Corpuscular Volume 93.9 fL (81-99); Mean Platelet Vol. 9.1 fl (6.2-12.0); Monocyte% 8.4 % (0-10); NRBC Flagged by Analyzer 0 % (0-5); Neutrophil # 3.35 X10^3/uL (2.7-7.7); Neutrophil % 56.6 % (47-70); Platelet Count 315 K/mm3 (150-450); RBC Distribution Width SD 44.6 fl (35.1-43.9); Red Blood Count 4.72 M/mm3 (4.2-5.4); White Blood Count 5.9 K/mm3 (4.4-11.0)
[2019-06-19 17:39] LABS: Anion Gap 2 (5-15); BUN 10 mg/dL (7-18); BUN/Creat Ratio 9.4 RATIO (10-20); Calcium,Total 9.5 mg/dL (8.5-10.1); Chloride 109 mmol/L (98-107); Creatinine, Serum 1.06 mg/dL (0.55-1.02); EST Glomerular Filtration Rate 58 mL/min (>60); Est Glom Filt Rate - Afr Amer 70 mL/min (>60); Glucose 93 mg/dL (74-106); Potassium 4.1 mmol/L (3.5-5.1); Sodium Level 141 mmol/L (136-145)
== END ==
PROVIDERS: Family Provider Internal Medicine; PCP Internal Medicine; Referring Provider Internal Medicine; Visit Provider Internal Medicine
DX: R53.81 Other malaise (principal); R53.83 Other fatigue
CPT/HCPCS: 36415; 80048; 85025

== ENCOUNTER → 2019-12-19 17:45 | Outpatient (CLI) | payer OTHER, SELFPAY ==
[2019-09-05 14:48] VITALS: BMI 26.6
== END ==
PROVIDERS: PCP Internal Medicine; Referring Provider Physician Assistant Surgical; Visit Provider Physician Assistant Surgical
DX: Z20.828 Contact with and (suspected) exposure to other viral communicable diseases (principal)
CPT/HCPCS: 87635; G2023; U0003

== ENCOUNTER 2020-04-07 21:38 | Emergency (ER) | payer OTHER, SELFPAY ==
[2020-04-06 11:56] VITALS: BMI 26.6
[2020-04-07 21:39] VITALS: BP 155/88; PULSE 84; RESP 17; TEMP 36.2; O2SAT 100; BMI 25.4
--- NOTE | 2020-04-07 22:15 | EKG12_ITS ---
Test Reason : COLD SYMPTOMS Blood Pressure : / mmHG Vent. Rate : 074 BPM Atrial Rate : 074 BPM P-R Int : 166 ms QRS Dur : 114 ms QT Int : 398 ms P-R-T Axes : 062 -12 048 degrees QTc Int : 441 ms Normal sinus rhythm Incomplete right bundle branch block Nonspecific T wave abnormality Abnormal ECG Confirmed by SONYA BREWSTER, TESS ([id number]), news video editor KIMBERLYN COLIN ([id number]) on 04/15/2020 12:47:30 PM Referred By: EUGENE Confirmed By:TONI HASSAN MD
[2020-04-07 22:38] VITALS: PULSE 77; RESP 16
--- NOTE | 2020-04-07 23:05 | RAD_ITS ---
STUDY: X-RAY CHEST REASON FOR EXAM: Female, 49 years old. Short of breath. Body aches. TECHNIQUE: AP portable upright COMPARISON: 04/06/2020 CXR FINDINGS: No apparent pneumothorax, pneumonia, pleural effusion, or edema. Cardiac silhouette, aga and mediastinal contours are within normal limits. No acute osseous abnormality. No evidence of free air under the diaphragm. RAD/Chest 1 View (Portable) IMPRESSION: Negative chest radiograph. Electronically Signed: Adi Solomon, at 23:24 EDT Tel , Service support ,
[2020-04-07 23:09] LABS: Absolute Lymphocyte Count 1.79 X10^3/uL (0.83-4.51); Absolute Neutrophil Count 6.2 X10^3/uL (2.0-7.7); Basophil# 0.02 X10^3/uL; Basophil% 0.2 % (0-1); Eosinophil# 0.05 X10^3/uL; Eosinophils% 0.6 % (0-5); Hematocrit 42.5 % (37-47); Hemoglobin 13.5 g/dL (12.0-15.0); Lymphocyte # 1.79 X10^3/ul (4.0); Lymphocyte % 20.3 % (19-41); Mean Corp Hgb Conc 31.8 g/dL (32-36); Mean Corpuscular Hgb 30.6 pg (27.0-32.0); Mean Corpuscular Volume 96.4 fL (81-99); Mean Platelet Vol. 9.1 fl (6.2-12.0); Monocyte# 0.73 X10^3/uL; Monocyte% 8.3 % (0-10); NRBC Flagged by Analyzer 0 % (0-5); Neutrophil % 70.3 % (47-70); Platelet Count 354 K/mm3 (150-450); RBC Distribution Width CV 12.2 % (11.6-14.6); RBC Distribution Width SD 43.1 fl (35.1-43.9); Red Blood Count 4.41 M/mm3 (4.2-5.4); White Blood Count 8.8 K/mm3 (4.4-11.0)
[2020-04-07] MEDS: 0.9% Normal Saline 1,000 ML 1000 ML IV (23:09)
--- NOTE | 2020-04-07 23:16 | ED.VIS.FLU ---
History of Present Illness Chief Complaint: Cold Sx Informant: Patient Onset: Days Context: Gradual Onset Timing: Continuous Narrative: Patient is a 49 year old female presenting from home for 1 1week of worsening flu like symptoms. Patient states that her symptoms started with congestion and sorethroat. This week it progressed to discomfort in her back and pleuritic chest pain and today progressed to myalgias and heaviness in her arms and legs. She is also developed associated nausea. She was tested by her primary care doctor for coronavirus as well as a respiratory panel. Her Covid test was negative and her respiratory panel is positive for rhinovirus. Her daughter who is had similar symptoms with him at a time also tested positive for rhinovirus. Patient is concerned however because all of her family members are getting better and she is starting to feel worse. She continues have shortness of breath and chest tightness. She continues to have chills but no fevers. She notes that her lung pain' has improved as she is currently on prednisone, albuterol and a Z-Curt. Patient know she has had some intermittent dizziness. She denies any change in her bowel habits or vomiting. She denies any change in her taste or smell. No other complaints at this time. Past Medical History - Allergies and Home Meds Allergies/Adverse Reactions: Allergies duloxetine [From Cymbalta] Allergy (Verified 04/07/20 21:39) Itching fluoxetine [From Prozac] Allergy (Verified 04/07/20 21:39) Itching lamotrigine [From Lamictal] Allergy (Verified 04/07/20 21:39) Itching Erythromycin Allergy (Mild, Uncoded 04/05/20 07:52) Nausea/Vom/Diarrhea Primary Care Physician: Evelyn Ceja MD [Primary Care Provider] - Past Medical History: None Surgical History: noncontributory Smoking Status: Never smoker Review of Systems General: Reports: Chills, Malaise. Denies: Fever, Sweats Cardiovascular: Reports: Chest pain - Pleuritic. Denies: Palpitations Respiratory: Reports: Dyspnea, Cough. Denies: Dyspnea on exertion Gastrointestinal: Reports: Nausea. Denies: Abdominal pain, Vomiting, Diarrhea, Melena, Hematochezia Genitourinary: Denies: Dysuria, Hematuria, Frequency Musculoskeletal: Reports: Myalgias. Denies: Arthralgias, Swelling, Extremity Pain Skin: Denies: Rash Neurological: Denies: Headache, Weakness, Numbness Physical Exam Vital Signs/Narrative: Vital Signs Temp Pulse Resp BP Pulse Ox 04/07/20 22:38 77 16 04/07/20 21:39 97.2 F L 84 17 155/88 H 100 Inital Vital Signs reviewed: Yes General: Well nourished, Well developed Head: Normocephalic, Atraumatic Eyes: Perrl, EOMI ENT: Moist mucous membranes, No rhinorrhea, TM's clear Neck: Supple, Nontender Cardiovascular: Regular rate, Regular rhythm, No murmurs Respiratory: No distress, CTA bilaterally, Chest nontender. Negative for: Rhonchi, Wheezing Abdomen: Soft, Nontender, Nondistended, Normal bowel sounds Back: Nontender, Normal Inspection Extremities: Nontender, No edema Skin: Normal color, No rash Neurological: Alert, Oriented x3, Cranial nerves II-XII grossly intact, Normal Strength, Normal Sensation Psychological: Normal affect Diagnostic/Tx/Re-eval Chest X-Ray - ED: 1 View, Read by ED Physician, Read by Radiologist, No Acute Disease Clinical Impression(s) from Imaging Studies Chest X-Ray 04/07/20 23:05 IMPRESSION: Negative chest radiograph. Electronically Signed: Adi Porterwer, at 23:24 EDT Tel , Service support , Laboratory Data 04/07/20 04/07/20 04/07/20 22:58 22:58 22:58 WBC 8.8 RBC 4.41 Hgb 13.5 Hct 42.5 MCV 96.4 MCH 30.6 MCHC 31.8 L RDW Std Deviation 43.1 RDW Coeff of Odell 12.2 Plt Count 354 MPV 9.1 Immature Gran % (Auto) 0.300 Neut % (Auto) 70.3 H Lymph % (Auto) 20.3 Pennington % (Auto) 8.3 Eos % (Auto) 0.6 Baso % (Auto) 0.2 Absolute Neuts (auto) 6.2 Absolute Lymphs (auto) 1.79 Nucleated RBC % 0 D-Dimer Quant (PE/DVT) 0.29 Sodium 140 Potassium 3.7 Chloride 111 H Carbon Dioxide 25.0 Anion Gap 4 L BUN 10 Creatinine 1.04 H Estim Creat Clear Calc 64.56 Est GFR (MDRD) Af Amer 72 Est GFR (MDRD) Non-Af 59 L BUN/Creatinine Ratio 9.6 L Glucose 89 Calcium 9.4 Total Bilirubin 0.30 AST 14 L ALT 22 Alkaline Phosphatase 78 Total Creatine Kinase Troponin I < 0.015 Total Protein 7.0 Albumin 3.6 Globulin 3.4 Albumin/Globulin Ratio 1.1 04/07/20 22:58 WBC RBC Hgb Hct MCV MCH MCHC RDW Std Deviation RDW Coeff of Odell Plt Count MPV Immature Gran % (Auto) Neut % (Auto) Lymph % (Auto) Pennington % (Auto) Eos % (Auto) Baso % (Auto) Absolute Neuts (auto) Absolute Lymphs (auto) Nucleated RBC % D-Dimer Quant (PE/DVT) Sodium Potassium Chloride Carbon Dioxide Anion Gap BUN Creatinine Estim Creat Clear Calc Est GFR (MDRD) Af Amer Est GFR (MDRD) Non-Af BUN/Creatinine Ratio Glucose Calcium Total Bilirubin AST ALT Alkaline Phosphatase Total Creatine Kinase 65 Troponin I Total Protein Albumin Globulin Albumin/Globulin Ratio - Rhythm Strip Rhythm Strip: Sinus Rhythm Rate: 74 Ectopy: None - EKG Initial EKG Interpretation: Sinus Rhythm, - - NSR at are of 74 incomplete RBBB Normal intervals No change compaired to prior ECG - Medical Decision Making Patient is evaluated for 1 week of flulike symptoms. She is tested positive for rhinovirus but has had worsening of her symptoms. Patient is having chest discomfort and shortness of breath will also obtain a D-dimer. She is otherwise low risk for PE. Her physical exam is benign. Given the current pandemic patient will be retested for COVID-19 however she is not hypoxic and I do not anticipate an admission so an outpatient test is ordered. Work-up is largely negative. Patient does not have any acute signs of infection. Her D-dimer is negative. Suspect PE as a cause of her symptoms. Troponin is negative. She does not have any acute EKG changes. She not have findings consistent with rhabdomyolysis. Patient be discharged home with symptomatic treatment. She is encouraged to continue to quarantine until her symptoms resolved. Patient is counseled on signs and symptoms requiring return to the emergency room. Patient verbalizes agreement and understand this plan. Patient discharged home in stable and improved condition. ED Disposition - Plan for ED Patient: Disposition: Home or Assisted Living Diagnosis: Viral illness Instructions: ED Viral Syndrome Referrals: Evelyn Ceja MD [Primary Care Provider] - Additional Instructions: Alternate Tylenol and ibuprofen as needed for body aches and pain. Your Covid test should result within a couple days. You will be contacted if it is positive. Continue to isolate at home while you are symptomatic.
[2020-04-07 23:26] LABS: ALB/GLOB Ratio 1.1 RATIO (0.9-2.4); AST(SGOT) 14 U/L (15-37); Alanine Aminotransfer ALT/SGPT 22 U/L (13-56); Albumin, Serum 3.6 g/dL (3.2-5.0); Alkaline Phosphatase 78 U/L (45-117); Anion Gap 4 (5-15); BUN 10 mg/dL (7-18); BUN/Creat Ratio 9.6 RATIO (10-20); Calcium,Total 9.4 mg/dL (8.5-10.1); Chloride 111 mmol/L (98-107); Creatinine, Serum 1.04 mg/dL (0.55-1.02); D-Dimer Quantitative (DVT/PE) 0.29 FEU/ug/m (0.27-0.49); EST Glomerular Filtration Rate 59 mL/min (>60); Est Glom Filt Rate - Afr Amer 72 mL/min (>60); Estimated Creatinine Clearance 64.56 ml/min; Globulin 3.4 g/dL (2.2-4.2); Glucose 89 mg/dL (74-106); Potassium 3.7 mmol/L (3.5-5.1); Sodium Level 140 mmol/L (136-145)
[2020-04-07 23:35] VITALS: BP 117/83; PULSE 71; RESP 21; TEMP 36.6; O2SAT 98
[2020-04-07 23:37] LABS: CPK Total, Creatine Kinase 65 U/L (26-192)
[2020-04-07 23:41] VITALS: O2SAT 98
== END 2020-04-08 00:10 | disposition home or self-care (01) ==
PROVIDERS: Emergency Provider Emergency Medicine; PCP Internal Medicine
DX: B34.9 Viral infection, unspecified (principal)
CPT/HCPCS: 71045; 80053; 82550; 84484; 85025; 85379; 87635; 93005; 99284; J7030; U0003

== ENCOUNTER → 2020-04-20 12:00 | Outpatient (CLI) | payer OTHER, SELFPAY ==
[2020-04-07 21:39] VITALS: BMI 25.4
--- NOTE | 2020-04-20 12:05 | BI_ITS ---
MAMMOGRAPHY - BILATERAL SCREENING REASON FOR EXAM: Female, 49 years old. Routine annual screening examination. PERTINENT HISTORY: Aunts with breast cancer. TECHNIQUE: Digital bilateral breast soumya (3D mammographic acquisition) in the CC and MLO projections. 2-D mediolateral oblique (MLO) and craniocaudad (CC) views of both breasts were obtained. CAD: Full Field Digital Mammography with Computer Added Detection was performed. COMPARISON: Comparison is made with prior outside examination dated 05/15/2014. FINDINGS: Breast Composition: The breasts are heterogeneously dense, which may obscure small masses. There are no dominant masses or suspicious calcifications. Stable appearance of the bilateral breast implants. No other significant abnormalities are identified. There has been no significant change since the prior study. BI/SCREEN MAMM (CAD) W/SOUMYA BILAT IMPRESSION: Stable bilateral screening mammogram. Yearly follow-up mammogram recommended. (A) ASSESSMENT CATEGORY: BIRADS Category 2: Benign. A letter regarding these results will be sent to the patient by the facility within 30 days. Approximately 10% of breast cancers are not detected by mammography. A normal mammogram should not delay biopsy of a clinically suspicious abnormality. [id number] Electronically Signed: Dez Lopez, at 11:05 EST , Service support ,
--- NOTE | 2020-04-20 12:46 | BD_ITS ---
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 COMPARISON: None. FINDINGS: Lumbar Spine (L1-L4): g/cm2 (1.177) / T-score (0.0) / Z-score (0.5) Findings are suggestive of normal bone density with a low fracture risk. Left Femur Total: g/cm2 (0.816) / T-score (-1.5) / Z-score (-1.0) Left Femoral Neck: g/cm2 (0.871) / T-score (-1.2) / Z-score (-0.3) Right Femur Total: g/cm2 (0.842) / T-score (-1.3) / Z-score (-0.8) Right Femoral Neck: g/cm2 (0.848) / T-score (-1.4) / Z-score (-0.5) R BD/Dexa Bone Density Study IMPRESSION: The patient is considered osteopenic as outlined below according to World Fausto Organization (WHO) criteria with a low fracture risk. Reference Information: The T-score is the number of standard deviations above or below the standard which is normal for young adults at their peak bone mineral density. The World Health Organization (WHO) interprets the T-scores as follows: Above -1 Normal bone density Between -1 and -2.5 Osteopenia Equal to / or below -2.5 Osteoporosis As a practical clinical guideline, osteopenia may be graded as follows: Mild -1 through -1.5 Moderate -1.6 through -2.0 Severe -2.1 through -2.4 The Z-score is the number of standard deviations above or below age-matched controls. A Z-score of less than -1.5 would be considered abnormal. References: 1. NIH Osteoporosis and Related Bone Diseases www osteo.org 2. International Society for Clinical Densitometry www iscd.org 3. National Osteoporosis Foundation www nof.org Electronically Signed: Dez Lopez, at 13:35 EST , Service support ,
== END ==
PROVIDERS: PCP Internal Medicine; Referring Provider Obstetrics & Gynecology Gynecology; Visit Provider Obstetrics & Gynecology Gynecology
DX: Z12.31 Encounter for screening mammogram for malignant neoplasm of breast (principal); M81.0 Age-related osteoporosis without current pathological fracture
CPT/HCPCS: 77063; 77067; 77080